=== PATIENT | female | born 1940 | race Asian ===

== ENCOUNTER → 2017-08-13 | Outpatient (CLI) | payer OTHER ==
[~2017-08-13] MED LIST: ATOR20TA38 PO; CLOP75TA27 PO; CLOP75TA4 PO; METF1000 PO; METF500T4 PO; METO-448 PO; OPHTHALMIC IRRIG SOLUTION 120 ML ONE; PHENYLephrine 10% 5 ML OPH ONE; PROPARACAINE 0.5% 15 ML OPH ONE; TROPICAMIDE 1% 3 ML OPH ONE
== END | disposition home or self-care (01) ==
LOC: RAD 10:19
PROVIDERS: ATTEND Ophthalmology
DX: H26.493 Other secondary cataract, bilateral (principal)
CPT/HCPCS: 66821; Z7610